=== PATIENT | male | born 1975 | race Caucasian/White ===

== ENCOUNTER 2021-02-05 23:21 | Emergency (ER) | payer OTHER ==
[~2021-02-05] VITALS: Ht 175.3 cm; Wt 90.7 kg
[2021-02-05 23:22] VITALS: BP 142/65
--- NOTE | 2021-02-05 23:22 | NUR ---
PT AAOX4. REQUESTING MED CLEARANCE FOR VOL PSYCH. SI WITH PLAN OF JUMPING IN FROM OF A CAR. -HI. PLACED IN BED 14 ON MONITOR AND PULSE OX. AWITING ER MD FOR EVAL AND ORDERS. SITTER AT BEDSIDE.
[2021-02-05 23:52] LABS: BILIRUBIN,URINE Negative (NEGATIVE); COLOR,URINE DARK YELLOW (YELLOW); LEUKOCYTE ESTERASE ,URINE Negative (NEGATIVE); NITRITE, URINE Negative (NEGATIVE); PROTEIN,URINE Negative (NEGATIVE); UGLUCOSE Negative (NEGATIVE); UROBILINOGEN,URINE >=8.0 EU/dL (0.2)
[2021-02-05 23:53] LABS: BASOPHILS # (AUTO) 0.1 K/uL (0.0-0.2); BASOPHILS % (AUTO) 1.7 % (0.0-2.0); EOSINOPHILS % (AUTO) 3.5 % (0.0-6.0); HEMATOCRIT 41 % (39-51); HEMOGLOBIN 13.7 g/dL (13.5-17.5); LYMPHOCYTES # (AUTO) 1.3 K/uL (0.8-4.8); LYMPHOCYTES % (AUTO) 18.4 % (20.0-44.0); MEAN CORPUSCULAR HGB CONC 33 g/dl (31.0-36.0); MEAN CORPUSCULAR VOLUME 89 fL (80-96); MONOCYTES # (AUTO) 0.8 K/uL (0.1-1.30); MONOCYTES % (AUTO) 11.1 % (2.0-12.0); NEUTROPHILS # (AUTO) 4.6 K/uL (1.8-8.9); NEUTROPHILS % (AUTO) 65.3 % (43.0-81.0); PLATELET COUNT (AUTO) 178 K/uL (150-450); RED BLOOD CELL COUNT(AUTO) 4.62 MIL/uL (4.5-6.0)
[2021-02-06 00:07] LABS: ALANINE AMINOTRANSFERASE 33 U/L (12-78); ALBUMIN 3.1 g/dL (3.4-5.0); ALCOHOL, BLOOD < 3 mg/dL (0-0); ALKALINE PHOSPHATASE 66 U/L (46-116); ASPARTATE AMINOTRANSFERASE 17 U/L (15-37); BILIRUBIN,DIRECT 0.2 mg/dL (0.0-0.2); BILIRUBIN,TOTAL 0.5 mg/dL (0.2-1.0); CALCIUM, SERUM 8.9 mg/dL (8.5-10.1); CARBON DIOXIDE 30 mmol/L (21-32); CHLORIDE 106 mmol/L (98-107); CREATININE 0.9 mg/dL (0.6-1.3); GLUCOSE 102 mg/dL (74-106); POTASSIUM 4.7 mmol/L (3.5-5.1); SODIUM SERUM 141 mmol/L (136-145); TOTAL PROTEIN, SERUM 7.2 g/dL (6.4-8.2); UREA NITROGEN, BLOOD 15 mg/dL (7-18)
[2021-02-06 00:08] LABS: ACETAMINOPHEN 0 ug/ml (10-30)
--- NOTE | 2021-02-06 00:28 | NUR ---
FACESHEET AND CLINICALS FAXED TO CARMEN MATTHEW.
--- NOTE | 2021-02-06 11:45 | NUR ---
"Landing Man consult: patient services manager consult requested for suicidal ideation, substance use and homelessness. Patient is a 45-year-old, male. SW met with patient at his bedside in the emergency department. Patient was alert and oriented x4. Patient presented calm and cooperative. Patient was able to maintain appropriate eye contact. Patient appeared well-groomed and appropriately dressed. Per chart, patient presented to the emergency department on 02/05/21 with complaints of suicidal ideation with a plan to jump in front of a car. Patient requested voluntary psychiatric admission. ED RN Nash faxed clinicals to [facility], , for review. Patient stated that was previously experiencing suicidal ideation when he presented to the emergency department on 02/05/21. Patient reported intermittent suicidal ideation due to interpersonal stressors. Patient requested voluntary psychiatric admission. Patient stated that he is currently homeless and has been homeless for the last year. Patient is ambulatory. Patient has access to food stamps and [employer]. Patient reported occasional cannabis use. Per toxicology report, patient is positive for amphetamine and cannabis use. Patient reported history of PTSD, Bipolar Disorder, Depression and Trichotillomania. Patient reported that he has not been taking psychiatric medication recently but plans to. ARNIE offered the patient homeless, substance use, and mental health resources. Patient accepted the resources and thanked ARNIE. ARNIE filed homeless waiver in the patient's chart. Patient requested voluntary psychiatric admission. PLAN: Per patient's request for voluntary psychiatric admission, ED JOSE ALBERTO Cao faxed clinicals to [facility], for review. SS will remain available as needed. RESOURCES: Year-round shelters: [facility] [address] [place] [address] ; [facility] [place] [address] [place] [address]; [facility] [address] [facility] [address] S[place] 4 | [facility] Provider: [facility] Address: [address], [address] # of Beds: 48 Population Served: [facility] Provider: First to Serve Address: [address] [facility], [address] # of Beds: 73 Population Served: [facility] 6 | [facility] Provider: [facility] Last Address: [address] [facility], [address] # of Beds: 63 Population Served: [facility] 3 | [facility] Provider: [facility] [place] [place] Address: [address] [facility], [address] # of Beds: 75 Population Served: [facility] 8 | [facility] Provider: [facility] [place] Address: [address] [facility] [address], [address] # of Beds: 80 Population Served: [facility] 1 | [facility] Provider: [facility] [place] Address: [address] [place] [address], [address] # of Beds: 85 Population Served: [facility] 2 | [facility] Provider: [facility] Address: Confidential (please call for location) # of Beds: 52 Population Served: [facility] 4 | [facility] Provider: [facility] Address: [address] [facility], [address] # of Beds: 49 Population Served: [facility] Provider: [facility] To Serve Address: [address] [facility], [address] # of Beds: 27 Population Served: [facility] Hy[facility]: [facility]: [address] Ronny Garcia ; [facility] [address] [facility] ; [facility] [address] Ariel Virgen . Food Resources: [place] [facility] at [facility]- [address]. [place]; Meet Each Need with Dignity ([facility]) [address] [facility]; [facility] [address]; [facility] [address]2 Klaus Enrique. Mental Health resources provided: [facility] [address] [place], [place] [address] ; [facility] [address] [facility] [address], [place] [address] ; [facility] [address] [facility] [place], [place] [phone] ; [facility] [address] [place], [place] [phone] Healthcare Clinics: [facility] [address] [facility], [address] [place]. [place] ; [facility] [address] [facility] [address] [place] [address]; [facility] [address] [facility] [place] [address] [phone] Counseling--[facility] [address] [facility], [facility] [place], [place] [id number] (Specializes in in-depth psychotherapy for emotional distress: anxiety, depression, interpersonal conflicts, life transitions, childhood abuse) PSYCHIATRIC OUTPATIENT SERVICES [facility] Partial Hospitalization and Intensive Outpatient Program (Managed Care and [place] Only) [address] [facility] [place] [facility]. [facility] [id number] [facility] Partial Hospitalization and Outpatient Program [address] [facility]. [address] [place], [place] [id number] [facility] Partial Hospitalization and Outpatient Program [address] [place] [address] [facility] [address] [facility]. [address] [place], [place] [address] [facility] Partial Hospitalization and Outpatient Program [address] [place], [place] [phone] Substance use resources provided included: [facility] Substance Abuse Self-Helpline (SAS) ; [facility] [address] [facility] [place] [address] ; [facility] [address] [facility] [address] ; [facility] [address] [phone] ; [facility] [address] [facility] [phone] ; [facility] [address] [facility] [phone] ; [facility] [place]; [facility] [place]; [place] [facility] [place]; Alcoholics Anonymous -SFV"
--- NOTE | 2021-02-06 13:52 | NUR ---
RECEIVED A CALL FROM LUIS ANTONIO ARENAS. PT ACCEPTED UNDER THE CARE OF DR. COVARRUBIAS. NURSING CATIA ROSE IS REQUESTING PT TO BE SEND AFTER 2 PM. Addendum: 02/06/21 at 1356 by FREEMAN NUMBER FOR REPORT [phone].
--- NOTE | 2021-02-06 13:56 | NUR ---
CALLED [facility] FOR TRANSPORT TO [facility]. ETA 75-90 MINUTES.
--- NOTE | 2021-02-06 16:20 | NUR ---
PT TRANSPORTED TO [facility] IN STABLE CONDITION.
== END 2021-02-06 16:20 ==
LOC: ER 23:21
DX: R45.851 Suicidal ideations (principal); L55.9 Sunburn, unspecified; Z20.822 Contact with and (suspected) exposure to COVID-19; Z59.0 Homelessness; I10 Essential (primary) hypertension
CPT/HCPCS: 36415; 80048; 80076; 80143; 80307; 80320; 81003; 85025; 87426; 99285; C9803; G0480